=== PATIENT | female | born 1935 | race Caucasian/White ===

== ENCOUNTER 2017-05-22 10:16 | Inpatient (IN) | payer MEDICARE ==
[~2017-05-22] VITALS: Ht 152.4 cm; Wt 66.5 kg
[2017-05-22 11:00] LABS: BASOPHILS % (AUTO) 0.8 % (0.0-5.0); EOSINOPHILS % (AUTO) 1.1 % (0.0-8.0); MEAN CORPUSCULAR HEMOGLOBIN 31.5 pg (27.0-33.0); MEAN CORPUSCULAR HGB CONC 34.7 g/dL (32.0-36.0); MEAN CORPUSCULAR VOLUME 90.7 fL (79-99); MONOCYTES % (AUTO) 5.9 % (3.0-13.0); NEUTROPHILS % (AUTO) 80.2 % (40.0-77.0); NUCLEATED RED BLOOD CELLS 0.1 % (0.0-0.19); PLATELET COUNT (AUTO) 263 K/uL (130-400); RED BLOOD CELL COUNT(AUTO) 2.05 MIL/uL (4.00-5.50); RED CELL DISTRIBUTION WIDTH 15.4 % (11.0-15.5); WHITE BLOOD COUNT (AUTO) 8.2 K/uL (4.8-10.8)
[2017-05-22] MEDS ORDERED: SODIUM CHLORIDE 0.9% 500ML 500 ML IV ONE ×2 (11:03→15:48)
[2017-05-22 11:09] LABS: CREATININE 1.4 mg/dL (0.5-1.5); POTASSIUM 3.8 mmol/L (3.5-5.1)
[2017-05-22 11:14] LABS: ALBUMIN 3.6 g/dL (3.5-5.0); BILIRUBIN,DIRECT 0.1 mg/dL (0.0-0.3); BILIRUBIN,TOTAL 0.4 mg/dL (0.2-1.0); TOTAL PROTEIN, SERUM 6.1 g/dL (6.0-8.3)
[2017-05-22 11:22] LABS: HEMATOCRIT 18.6 % (36-48)
[2017-05-22 11:33] LABS: INR 1.04 (0.85-1.15); PARTIAL THROMBOPLASTIN TIME 22.1 SEC (26.3-35.5); PROTHROMBIN TIME 10.9 SEC (9.6-11.6)
[2017-05-22 11:35] LABS: B-TYPE NATRIURETIC PEPTIDE 349 pg/mL (0-100)
[2017-05-22] MEDS ORDERED: LACTULOSE 20 GM/30 ML UDCUP PO PRN (13:30)
[2017-05-22] MEDS ORDERED: ACETAMINOPHEN 325 MG TAB PO PRN ×2 (13:30)
[2017-05-22] MEDS ORDERED: ONDANSETRON HCL 4 MG/2 ML VIAL IV PRN (13:30)
[2017-05-22] MEDS: FUROSEMIDE 10 MG/ML 2ML VIAL IV SCH (13:30)
[2017-05-22] MEDS ORDERED: GUAIFENESIN-DM 200/20 MG 10 ML PO PRN (13:30)
[2017-05-22] MEDS ORDERED: FUROSEMIDE 10 MG/ML 2ML VIAL ONE (13:34)
[2017-05-22 14:59] LABS: % IRON SATURATION 13.3 % (22-44); FERRITIN 36 ng/mL (15-150); IRON, SERUM 41 mcg/dL (50-170); TOTAL IRON BINDING CAPACITY 307 mcg/dL (250-450)
[2017-05-22 15:09] LABS: RETICULOCYTE % (AUTO) 7.57 % (0.42-2.23)
[2017-05-22 15:30] VITALS: BP 109/52
[2017-05-22] MEDS: LACTULOSE 20 GM/30 ML UDCUP PO SCH (18:30)
[2017-05-22] MEDS ORDERED: MAGNESIUM CITRATE 296 ML SOLUTION PO ONE (18:30)
[2017-05-22] MEDS ORDERED: PEG 3350/NA SULF,BICARB,CL/KCL 4000 ML SOLN PO ONE (18:30)
[2017-05-22] MEDS ORDERED: LOSA100T29 PO (19:39)
[2017-05-22] MEDS ORDERED: AMLO5TAB2 PO (19:39)
[2017-05-22] MEDS ORDERED: AMIO200T2 PO (19:39)
[2017-05-22] MEDS ORDERED: METO50TA18 PO (19:39)
[2017-05-22] MEDS ORDERED: AMIODARONE HCL 200 MG TABLET PO SCH (19:45)
[2017-05-22 19:53] VITALS: BP 131/62
[2017-05-22] MEDS: METOPROLOL TARTRATE 50 MG TAB PO SCH (20:37)
[2017-05-22 23:36] VITALS: BP 128/65
[2017-05-23] VITALS (12 sets, daily range): BP systolic 93–138; BP diastolic 39–72
[2017-05-23] MEDS: FUROSEMIDE 10 MG/ML 2ML VIAL IV SCH (02:12)
[2017-05-23 04:22] LABS: HEMATOCRIT 25.2 % (36-48); MEAN CORPUSCULAR HEMOGLOBIN 29.3 pg (27.0-33.0); MEAN CORPUSCULAR HGB CONC 33.8 g/dL (32.0-36.0); MEAN CORPUSCULAR VOLUME 86.6 fL (79-99); NUCLEATED RED BLOOD CELLS 0.1 % (0.0-0.19); PLATELET COUNT (AUTO) 228 K/uL (130-400); RED BLOOD CELL COUNT(AUTO) 2.91 MIL/uL (4.00-5.50); RED CELL DISTRIBUTION WIDTH 15.8 % (11.0-15.5); WHITE BLOOD COUNT (AUTO) 6.1 K/uL (4.8-10.8)
[2017-05-23 04:38] LABS: B-TYPE NATRIURETIC PEPTIDE 208 pg/mL (0-100)
[2017-05-23 04:44] LABS: CREATININE 1.5 mg/dL (0.5-1.5); POTASSIUM 3.4 mmol/L (3.5-5.1)
[2017-05-23] MEDS: PANTOPRAZOLE 40 MG/VIAL IVP SCH (09:00)
[2017-05-23] MEDS ORDERED: MORPHINE SULFATE 4 MG/1ML SYG IVP PRN (10:15)
[2017-05-23] MEDS ORDERED: MORPHINE SULFATE 2 MG/ML 1ML SYG IVP PRN (10:15)
[2017-05-23] MEDS: METOPROLOL TARTRATE 50 MG TAB PO SCH (10:45)
[2017-05-23] MEDS: LOSARTAN 100 MG TABLET PO SCH (10:45)
[2017-05-23] MEDS: AMLODIPINE BESYLATE 5 MG TAB PO SCH (10:45)
[2017-05-23] MEDS: BISACODYL 5 MG TABLET.DR PO SCH (11:00)
[2017-05-23] MEDS ORDERED: MAGNESIUM CITRATE 296 ML SOLUTION PO SCH (11:00)
[2017-05-23] MEDS: LACTULOSE 20 GM/30 ML UDCUP PO SCH ×2 (11:00→17:38)
[2017-05-23] MEDS ORDERED: PROPOFOL 10 MG/ML 20ML VIAL IV ONE (16:02)
[2017-05-23] MEDS ORDERED: EPHEDRINE SULFATE 50 MG/ML AMPULE ONE (16:10)
[2017-05-23 17:14] LABS: HEMATOCRIT 25.1 % (36-48)
[2017-05-23 21:01] LABS: HEMATOCRIT 24.2 % (36-48)
[2017-05-24] VITALS (23 sets, daily range): BP systolic 91–138; BP diastolic 36–76
[2017-05-24] MEDS: METOPROLOL TARTRATE 50 MG TAB PO SCH ×3 (00:11→23:29)
[2017-05-24 05:02] LABS: HEMATOCRIT 23.3 % (36-48); MEAN CORPUSCULAR HEMOGLOBIN 30.8 pg (27.0-33.0); MEAN CORPUSCULAR HGB CONC 35.5 g/dL (32.0-36.0); MEAN CORPUSCULAR VOLUME 86.8 fL (79-99); NUCLEATED RED BLOOD CELLS 0.1 % (0.0-0.19); PLATELET COUNT (AUTO) 222 K/uL (130-400); RED BLOOD CELL COUNT(AUTO) 2.69 MIL/uL (4.00-5.50); RED CELL DISTRIBUTION WIDTH 16.1 % (11.0-15.5); WHITE BLOOD COUNT (AUTO) 5.1 K/uL (4.8-10.8)
[2017-05-24 05:20] LABS: CREATININE 1.2 mg/dL (0.5-1.5); POTASSIUM 3.4 mmol/L (3.5-5.1)
[2017-05-24] MEDS: LOSARTAN 100 MG TABLET PO SCH (08:21)
[2017-05-24] MEDS: AMLODIPINE BESYLATE 5 MG TAB PO SCH (08:21)
[2017-05-24] MEDS: PANTOPRAZOLE 40 MG/VIAL IVP SCH (08:21)
[2017-05-24 08:54] LABS: HEMATOCRIT 24.4 % (36-48)
[2017-05-24] MEDS ORDERED: LIDOCAINE HCL-MPF 1% 2ML VIAL ONE (08:56)
[2017-05-24] MEDS ORDERED: POTASSIUM CHLORIDE 20MEQ/100ML 100 ML IV ONE (08:56)
[2017-05-24] MEDS ORDERED: POTASSIUM CHLORIDE 10% ELIXIR 20 MEQ/15 ML UDCUP PO PRN (09:15)
[2017-05-24] MEDS ORDERED: POTASSIUM CHLORIDE 20 MEQ ERTAB PO PRN (09:15)
[2017-05-24] MEDS ORDERED: LIDOCAINE HCL-MPF 1% 2ML VIAL IVP PRN (09:15)
[2017-05-24] MEDS ORDERED: POTASSIUM CHLORIDE 20MEQ/100ML 100 ML IV PRN (09:15)
[2017-05-24] MEDS: BISACODYL 5 MG TABLET.DR PO SCH (11:00)
[2017-05-24] MEDS: LACTULOSE 20 GM/30 ML UDCUP PO SCH ×2 (11:00→18:30)
[2017-05-24] MEDS ORDERED: PROPOFOL 10 MG/ML 20ML VIAL IV ONE (13:07)
[2017-05-24] MEDS ORDERED: LIDOCAINE HCL 1% 20 ML VIAL ONE (13:07)
[2017-05-24] MEDS ORDERED: GLYCOPYRROLATE 0.2 MG/ML 5 ML VIAL ONE (13:07)
[2017-05-24] MEDS ORDERED: RIVA20TA PO (16:27)
[2017-05-24] MEDS ORDERED: RIVAROXABAN 20 MG TABLET PO SCH (21:00)
[2017-05-25 04:46] VITALS: BP 107/64
[2017-05-25 04:50] LABS: HEMATOCRIT 24.1 % (36-48); MEAN CORPUSCULAR HEMOGLOBIN 29.4 pg (27.0-33.0); MEAN CORPUSCULAR HGB CONC 33.8 g/dL (32.0-36.0); NUCLEATED RED BLOOD CELLS 0.2 % (0.0-0.19); PLATELET COUNT (AUTO) 231 K/uL (130-400); RED BLOOD CELL COUNT(AUTO) 2.77 MIL/uL (4.00-5.50); RED CELL DISTRIBUTION WIDTH 15.8 % (11.0-15.5); WHITE BLOOD COUNT (AUTO) 4.2 K/uL (4.8-10.8)
[2017-05-25 05:03] LABS: CREATININE 1.3 mg/dL (0.5-1.5); POTASSIUM 3.5 mmol/L (3.5-5.1)
[2017-05-25 08:00] VITALS: BP 113/55
[2017-05-25] MEDS: METOPROLOL TARTRATE 50 MG TAB PO SCH (10:07)
[2017-05-25] MEDS: LOSARTAN 100 MG TABLET PO SCH (10:07)
[2017-05-25] MEDS: PANTOPRAZOLE 40 MG/VIAL IVP SCH (10:07)
[2017-05-25] MEDS: AMLODIPINE BESYLATE 5 MG TAB PO SCH (10:07)
[2017-05-25] MEDS: BISACODYL 5 MG TABLET.DR PO SCH (10:08)
[2017-05-25] MEDS: LACTULOSE 20 GM/30 ML UDCUP PO SCH ×2 (10:08)
[2017-05-25] MEDS ORDERED: PANT40TA PO (11:01)
== END 2017-05-25 14:00 | disposition home or self-care (01) | DRG 393 ==
LOC: EDH 10:16 → EDHIP 13:23 → 3DH 14:33
PROVIDERS: ADMIT Family Medicine; ATTEND Family Medicine
PROC: 0DBH8ZZ Excision of Cecum, Via Natural or Artificial Opening Endoscopic (ICD-10-PCS; 2017-05-23)
PROC: 30233N1 Transfusion of Nonautologous Red Blood Cells into Peripheral Vein, Percutaneous Approach (ICD-10-PCS; 2017-05-23)
PROC: 0DB98ZZ Excision of Duodenum, Via Natural or Artificial Opening Endoscopic (ICD-10-PCS; 2017-05-23)
PROC: 0DJ08ZZ Inspection of Upper Intestinal Tract, Via Natural or Artificial Opening Endoscopic (ICD-10-PCS; principal; 2017-05-24)
DX: K62.1 Rectal polyp (principal); K29.01 Acute gastritis with bleeding; K22.11 Ulcer of esophagus with bleeding; I48.1 Persistent atrial fibrillation; D62 Acute posthemorrhagic anemia; I11.0 Hypertensive heart disease with heart failure; I50.32 Chronic diastolic (congestive) heart failure; K64.8 Other hemorrhoids; J44.9 Chronic obstructive pulmonary disease, unspecified; K57.30 Diverticulosis of large intestine without perforation or abscess without bleeding; D50.0 Iron deficiency anemia secondary to blood loss (chronic); E66.9 Obesity, unspecified; E78.5 Hyperlipidemia, unspecified; I25.10 Atherosclerotic heart disease of native coronary artery without angina pectoris; K55.20 Angiodysplasia of colon without hemorrhage; Z79.01 Long term (current) use of anticoagulants; Z90.13 Acquired absence of bilateral breasts and nipples; Z87.891 Personal history of nicotine dependence; Z87.19 Personal history of other diseases of the digestive system; Z87.11 Personal history of peptic ulcer disease; Z85.828 Personal history of other malignant neoplasm of skin; Z85.3 Personal history of malignant neoplasm of breast; Z88.0 Allergy status to penicillin; Z88.8 Allergy status to other drugs, medicaments and biological substances; Z68.28 Body mass index [BMI] 28.0-28.9, adult; Z82.49 Family history of ischemic heart disease and other diseases of the circulatory system
CPT/HCPCS: 36415; 36430; 71046; 80048; 80076; 82270; 82550; 82607; 82728; 82746; 83880; 84484; 85025; 85027; 85610; 85730; 86677; 86850; 86900; 86901; 86922; 88305; 88312; 93005; 99291; C9113; J1940; J2704; J3480; J3490; J7040; P9016

== ENCOUNTER → 2018-06-18 | Outpatient (CLI) | payer MEDICARE ==
[~2018-06-18] MED LIST: ALBU8.5H8 IH; AMLO5TAB9 PO; ANAS1TAB7 PO; ATOR20TA65 PO; DOCU-275 PO; FERR324T4 PO; FLUT1DIS4 IH; FURO-152 PO; LEVO25TA54 PO; LOSA50TA64 PO; METO50TA18 PO; MONT10TA24 PO; PANT40TA PO; PNV1TABL62 PO; WARF5TAB76 PO
== END | disposition home or self-care (01) ==
LOC: RAH 15:02
PROVIDERS: ATTEND Internal Medicine Critical Care Medicine
DX: S09.90XS Unspecified injury of head, sequela (principal); G31.9 Degenerative disease of nervous system, unspecified; X58.XXXS Exposure to other specified factors, sequela
CPT/HCPCS: 70450

== ENCOUNTER → 2019-01-23 | Outpatient (CLI) | payer MEDICARE | END | disposition home or self-care (01) | LOC: RAH 12:50 | PROVIDERS: ATTEND Physical Medicine & Rehabilitation | DX: M47.812 Spondylosis without myelopathy or radiculopathy, cervical region (principal); M48.02 Spinal stenosis, cervical region; S13.180A Subluxation of C7/T1 cervical vertebrae, initial encounter; X58.XXXA Exposure to other specified factors, initial encounter; Y93.89 Activity, other specified; Y92.89 Other specified places as the place of occurrence of the external cause; Y99.8 Other external cause status | CPT/HCPCS: 72141 ==

== ENCOUNTER → 2019-03-25 | Outpatient (CLI) | payer MEDICARE | END | disposition home or self-care (01) | LOC: RAH 12:53 | PROVIDERS: ATTEND Physical Medicine & Rehabilitation | DX: M48.061 Spinal stenosis, lumbar region without neurogenic claudication (principal); M51.26 Other intervertebral disc displacement, lumbar region; M71.38 Other bursal cyst, other site | CPT/HCPCS: 72148 ==

== ENCOUNTER → 2020-02-16 | Outpatient (CLI) | payer MEDICARE ==
[~2020-02-16] MED LIST changes: -ALBU8.5H8 IH; -AMLO5TAB9 PO; +APIX2.5T PO; -DOCU-275 PO; -FERR324T4 PO; -FURO-152 PO; -LEVO25TA54 PO; +LIDOP TP; +LOSA100T58 PO; -LOSA50TA64 PO; +METO50 PO; -MONT10TA24 PO; +MONT10TA26 PO; -PNV1TABL62 PO; +ROSU10TA28 PO; -WARF5TAB76 PO
== END | disposition home or self-care (01) ==
LOC: RAH 14:33
PROVIDERS: ATTEND Internal Medicine Critical Care Medicine
DX: M16.0 Bilateral primary osteoarthritis of hip (principal); M25.552 Pain in left hip
CPT/HCPCS: 73502

== ENCOUNTER → 2020-02-18 | Outpatient (CLI) | payer MEDICARE | END | disposition home or self-care (01) | LOC: RAH 13:38 | PROVIDERS: ATTEND Internal Medicine Critical Care Medicine | DX: K57.30 Diverticulosis of large intestine without perforation or abscess without bleeding (principal); M25.552 Pain in left hip | CPT/HCPCS: 73700 ==